=== PATIENT | male | born 1980 | race Caucasian/White ===

== ENCOUNTER 2017-07-13 09:57 | Emergency (ER) | payer OTHER ==
[2017-07-13 10:14] VITALS: BP 128/73; PULSE 62; TEMP 98.3; BMI 23.0
--- NOTE | 2017-07-13 10:36 | PDOC ---
History of Present Illness - General Chief Complaint: RX Refill Stated Complaint: RX REFILL Time Seen by Provider: 07/13/17 10:21 Past History - Past Medical History Allergies/Adverse Reactions: Allergies Allergy/AdvReac Type Severity Reaction Status Date / Time No Known Allergies Allergy Verified 07/13/17 10:11 Home Medications: Ambulatory Orders CarBAMazepine [Carbatrol ER] 300 mg PO TID 03/22/12 Carbamazepine [Carbamazepine ER] 300 mg PO TID #90 cpmp.12hr 07/13/17 Levetiracetam [Keppra -] 500 mg PO BID 07/13/17 Levetiracetam [Keppra -] 500 mg PO BID #60 tablet 07/13/17 Suicide Attempt (Hx): No Seizures: Yes - Surgical History Neurologic Surgery: Yes (brain) - Immunization History Td Vaccination: No TDAP Vaccination: No Immunization Up to Date: No - Psycho/Social/Smoking Cessation Hx Anxiety: No Suicidal Ideation: No Smoking Status: No Smoking History: Never smoked Have you smoked in the past 12 months: No Number of Cigarettes Smoked Daily: 0 Information on smoking cessation initiated: No Hx Alcohol Use: No Drug/Substance Use Hx: No Substance Use Type: None *Physical Exam - Vital Signs Last Vital Signs Temp Pulse Resp BP Pulse Ox 98.3 F 62 18 128/73 100 07/13/17 10:11 07/13/17 10:11 07/13/17 10:11 07/13/17 10:11 07/13/17 10:11 - Physical Exam General Appearance: Yes: Nourished, Appropriately Dressed HEENT: positive: EOMI, ANKUR Musculoskeletal: positive: Normal Inspection Extremity: positive: Normal Capillary Refill, Normal Inspection, Normal Range of Motion Neurologic: positive: senior scrum master II-XII NML intact, Fully Oriented, Alert, Normal Mood/ Affect, Normal Response, Motor Strength 5/5 Medical Decision Making - Medical Decision Making 07/13/17 10:51 cc: needs refil for seizure meds, moved from [place] and only has one week left of his meds. pt is establishing residence here, has [facility] medicaid pt has not missed any meds, has bottles with him with meds for one week left pt has no complaints I have verified the prescriptions are the patients and will prescribe for one month pt will follow here in [place] at the clinic *DC/Admit/Observation/Transfer Diagnosis at time of Disposition: Encounter for medication refill - Discharge Dispostion Disposition: HOME Condition at time of disposition: Fair - Prescriptions Prescriptions: Carbamazepine [Carbamazepine ER] 300 mg PO TID #90 cpmp.12hr Levetiracetam [Keppra -] 500 mg PO BID #60 tablet - Referrals Referrals: Lizett Castaneda [Primary Care Provider] - Dwaine Oshea MD [Staff Physician] - - Patient Instructions Additional Instructions: please follow with a primary care doctor or neurologist for further medication management
== END 2017-07-13 10:44 | disposition home or self-care (01) ==
LOC: JERFT 09:57
DX: G40.802 Other epilepsy, not intractable, without status epilepticus (principal)
CPT/HCPCS: 99281-25

== ENCOUNTER 2017-11-16 04:27 | Emergency (ER) | payer OTHER ==
[2017-11-16 04:41] VITALS: TEMP 97.8
[2017-11-16 04:45] VITALS: BP 130/88; PULSE 76; BMI 23.0
[2017-11-16] MEDS ORDERED: BUPIVACAINE HCL/PF 0.5% (5MG/ML) 10 ML VIAL IJ ONE (05:16)
[2017-11-16] MEDS ORDERED: LIDOCAINE HCL 1%, 10 MG/ML (50 mL VIAL) SQ ONE (05:16)
--- NOTE | 2017-11-16 05:19 | PDOC ---
History of Present Illness - General Chief Complaint: Toothache Stated Complaint: TOOTHACHE Time Seen by Provider: 11/16/17 04:47 - History of Present Illness Initial Comments: 11/16/17 05:18 CHIEF COMPLAINT: tooth pain HISTORY OF PRESENT ILLNESS: 37 yo M with hx of epilepsy presents to ED with tooth pain. Patient states he has an appointment with his dentist at 9 am but "I couldn't take the pain." No recent travel or sick contacts. PAST MEDICAL HISTORY: Denies past medical history FAMILY HISTORY: Denies SOCIAL HISTORY: Denies tobacco, alcohol, illicit drug use. SURGICAL HISTORY: Denies ALLERGIES: No known drug allergies REVIEW OF SYSTEMS General/Constitutional: Denies fever or chills. HEENT: Severe tooth pain. Denies change in vision. Denies ear pain or discharge. Denies sore throat. Gastrointestinal: Denies nausea, vomiting, diarrhea. Musculoskeletal: Denies joint or muscle swelling or pain. Denies neck or back pain. Neurologic: "I have a headache from this tooth pain." Denies vertigo, loss of consciousness, or loss of sensation. PHYSICAL EXAM General Appearance: Well-appearing, appropriately dressed. No apparent distress. HEENT: Dental caries and decay to 2nd R upper molar and 2nd R lower molar. EOMI , PERRLA, normal ENT inspection, normal voice, TMs normal, pharynx normal. No conjunctival pallor. No photophobia, scleral icterus. Respiratory/Chest: Lungs CTAB. Cardiovascular: RRR. S1, S2. Musculoskeletal/Extremities: Normal inspection. FROM of all extremities, normal capillary refill. No tenderness to extremities, pedal edema, swelling, erythema or deformity. Integumentary: Appropriate color, dry, warm. No cyanosis, erythema, jaundice or rash Neurologic: training program manager II-XII intact. Fully oriented, alert. Appropriate mood/affect. Motor strength 5/5. No appreciable EOM palsy, facial droop or sensory deficit. 11/16/17 05:43 Past History - Past Medical History Allergies/Adverse Reactions: Allergies Allergy/AdvReac Type Severity Reaction Status Date / Time No Known Allergies Allergy Verified 11/16/17 04:37 Home Medications: Ambulatory Orders CarBAMazepine [Carbatrol ER] 300 mg PO TID 03/22/12 Carbamazepine [Carbamazepine ER] 300 mg PO TID #90 cpmp.12hr 07/13/17 Levetiracetam [Keppra -] 500 mg PO BID 07/13/17 Levetiracetam [Keppra -] 500 mg PO BID #60 tablet 07/13/17 Diclofenac Sodium 50 mg PO BID #6 tablet. 11/16/17 COPD: No Seizures: Yes - Surgical History Neurologic Surgery: Yes (brain) - Immunization History Td Vaccination: No TDAP Vaccination: No Immunization Up to Date: No - Suicide/Smoking/Psychosocial Hx Smoking Status: No Smoking History: Never smoked Have you smoked in the past 12 months: No Number of Cigarettes Smoked Daily: 0 Information on smoking cessation initiated: No Hx Alcohol Use: No Drug/Substance Use Hx: No Substance Use Type: None *Physical Exam - Vital Signs Last Vital Signs Temp Pulse Resp BP Pulse Ox 97.8 F 76 20 130/88 99 11/16/17 04:37 11/16/17 04:37 11/16/17 04:37 11/16/17 04:37 11/16/17 04:37 Medical Decision Making - Medical Decision Making 11/16/17 05:45 37 yo M with hx of epilepsy presents to ED with tooth pain. Superior and inferior alveolar blocks performed; patient expressed immediate relief. Will rx Diclofenac for pain. Advised patient to take medication as prescribed and follow up with dentist as planned. Advised patient of signs and symptoms for return to ED. Patient verbalized understanding and agrees to plan. *DC/Admit/Observation/Transfer Diagnosis at time of Disposition: Pain, dental - Discharge Dispostion Disposition: HOME Condition at time of disposition: Stable Admit: No - Prescriptions Prescriptions: Diclofenac Sodium 50 mg PO BID #6 tablet. - Referrals Referrals: Bri Pitt [Primary Care Provider] - - Patient Instructions Printed Discharge Instructions: DI for Dental Pain Additional Instructions: Please take medications as prescribed. Follow up with your dentist on Friday morning as scheduled. If you develop any new or worsening pain, please return to the ER. - Post Discharge Activity
[2017-11-16] MEDS ORDERED: LIDOCAINE HCL 1%, 10 MG/ML (20ML VIAL) ONE (05:20)
[2017-11-16] MEDS ORDERED: BUPIVACAINE HCL/PF 0.5% (5MG/ML) 10 ML VIAL ONE (05:21)
== END 2017-11-16 05:54 | disposition home or self-care (01) ==
LOC: JER 04:27
PROC: 3E013BZ Introduction of Anesthetic Agent into Subcutaneous Tissue, Percutaneous Approach (ICD-10-PCS; principal; 2017-11-16)
DX: K02.9 Dental caries, unspecified (principal); G40.909 Epilepsy, unspecified, not intractable, without status epilepticus
CPT/HCPCS: 96372; 99281-25

== ENCOUNTER 2017-12-01 17:49 | Emergency (ER) | payer OTHER ==
[2017-12-01 18:21] VITALS: BP 100/64; PULSE 105; BMI 22.3
--- NOTE | 2017-12-01 18:23 | PDOC ---
Rapid Medical Evaluation Chief Complaint: Cold Symptoms Time Seen by Provider: 12/01/17 18:19 Medical Evaluation: Allergies Allergy/AdvReac Type Severity Reaction Status Date / Time No Known Allergies Allergy Verified 12/01/17 18:18 12/01/17 18:20 The patient presents with a chief complaint of: Flu like symptoms with fever since yesterday. C.o throat pain and dizziness. son diagnosed with Flu A on I have performed a brief in-person evaluation of this patient; Pertinent physical exam findings: ambulatory, in no respiratory distress. Erythema posterior pharynx. Fever 102 I have ordered the following: Ibuprofen, rapid strep, flu The patient will proceed to the ED for further evaluation.
[2017-12-01] MEDS ORDERED: DEXAMETHASONE SOD PHOSPHATE 10 MG/1 ML VIAL IM ONE (20:02)
[2017-12-01] MEDS ORDERED: IBUPROFEN 600 MG TABLET (FP) PO ONE ×2 (20:02→20:05)
[2017-12-01] MEDS ORDERED: AZITHROMYCIN 250 MG TABLET PO ONE (20:03)
[2017-12-01] MEDS ORDERED: ACETAMINOPHEN 500 MG TABLET (FP) PO ONE (20:03)
[2017-12-01] MEDS ORDERED: DEXAMETHASONE SOD PHOSPHATE 10 MG/1 ML VIAL ONE (20:05)
[2017-12-01] MEDS ORDERED: AZITHROMYCIN 250 MG TABLET ONE (20:05)
[2017-12-01] MEDS ORDERED: ACETAMINOPHEN 500 MG TABLET (FP) ONE (20:05)
--- NOTE | 2017-12-01 20:09 | PDOC ---
History of Present Illness - General Chief Complaint: Cold Symptoms Stated Complaint: COLD SYMPTOMS Time Seen by Provider: 12/01/17 18:19 History Source: Patient Exam Limitations: No Limitations - History of Present Illness Initial Comments: 12/01/17 20:04 37-year-old male with a history of seizures presents to the emergency department complaining of sore throat, fever/chills Tmax 103/oral he, productive cough and general malaise for 2 days without headache, dizziness, lightheadedness, facial pains, rhinorrhea, nasal congestion, a rakes, neck stiffness/pain, back pains, chest pain, shortness of breath, abdominal pains, urinary symptoms. Patient took ibuprofen 200 mg at 1500 hrs. today. Patient's 13 -year-old son was recently diagnosed with influenza A/yesterday. Timing/Duration: reports: other (x2d) Modifying Factors: worse with: rest Past History - Past Medical History Allergies/Adverse Reactions: Allergies Allergy/AdvReac Type Severity Reaction Status Date / Time No Known Allergies Allergy Verified 12/01/17 18:18 Home Medications: Ambulatory Orders Carbamazepine [Carbamazepine ER] 300 mg PO TID #90 cpmp.12hr 07/13/17 Levetiracetam [Keppra -] 500 mg PO BID #60 tablet 07/13/17 Diclofenac Sodium 50 mg PO BID #6 tablet. 11/16/17 COPD: No Seizures: Yes - Surgical History Neurologic Surgery: Yes (brain) - Immunization History Td Vaccination: No TDAP Vaccination: No Immunization Up to Date: No - Suicide/Smoking/Psychosocial Hx Smoking Status: No Smoking History: Never smoked Have you smoked in the past 12 months: No Number of Cigarettes Smoked Daily: 0 Information on smoking cessation initiated: No Hx Alcohol Use: No Drug/Substance Use Hx: No Substance Use Type: None Review of Systems - Review of Systems Able to Perform ROS?: Yes Comments:: 12/01/17 20:06 CONSTITUTIONAL: +fever, chills, generalized weakness Absent: diaphoresis, malaise, loss of appetite HEENT: +throat pain Absent: rhinorrhea, nasal congestion, throat swelling, difficulty swallowing, mouth swelling, ear pain, eye pain, visual Changes CARDIOVASCULAR: Absent: chest pain, loss of consciousness, palpitations, irregular heart rate, peripheral edema RESPIRATORY: + cough Absent:shortness of breath, dyspnea with exertion, orthopnea, wheezing, stridor , hemoptysis GASTROINTESTINAL: Absent: abdominal pain, abdominal distension, nausea, vomiting, diarrhea, constipation, melena, hematochezia GENITOURINARY: Absent: dysuria, frequency, urgency, hesitancy, hematuria, flank pain, genital pain MUSCULOSKELETAL: Absent: myalgia, arthralgia, joint swelling SKIN: Absent: rash, itching, pallor Is the patient limited Mohawk proficient: No *Physical Exam - Vital Signs Last Vital Signs Temp Pulse Resp BP Pulse Ox 102.7 F H 105 H 18 100/64 100 12/01/17 18:18 12/01/17 18:18 12/01/17 18:18 12/01/17 18:18 12/01/17 18:18 - Physical Exam Comments: 12/01/17 20:06 GENERAL: Well developed, well nourished. Awake and alert. No acute distress. HEENT: Normocephalic, atraumatic. PERRLA, EOMI. No conjunctival pallor. Sclera are non- icteric. Moist mucous membranes. Oropharynx is clear. NECK: Supple. Full ROM. No JVD. Carotid pulses 2+ and symmetric, without bruits. No thyromegaly. No lymphadenopathy. CARDIOVASCULAR: Regular rate and rhythm. No murmurs, rubs, or gallops. Distal pulses are 2+ and symmetric. PULMONARY: No evidence of respiratory distress. Lungs clear to auscultation bilaterally. No wheezing, rales or rhonchi. ABDOMINAL: Soft. Non-tender. Non-distended. No rebound or guarding. No organomegaly. Normoactive bowel sounds. MUSCULOSKELETAL Normal range of motion at all joints. No bony deformities or tenderness. No CVA tenderness. EXTREMITIES: No cyanosis. No clubbing. No edema. No calf tenderness. SKIN: Warm and dry. Normal capillary refill. No rashes. No jaundice. NEUROLOGICAL: Alert, awake, appropriate. Cranial nerves 2-12 intact. No deficits to light touch and temperature in face, upper extremities and lower extremities. No motor deficits in the in face, upper extremities and lower extremities. Normoreflexic in the upper and lower extremities. Normal speech. Toes are down- going bilaterally. Gait is normal without ataxia. *DC/Admit/Observation/Transfer Diagnosis at time of Disposition: Acute bronchitis Qualifiers: Bronchitis organism: unspecified organism Qualified Code(s): J20.9 - Acute bronchitis, unspecified Fever Qualifiers: Fever type: unspecified Qualified Code(s): R50.9 - Fever, unspecified Pharyngitis Qualifiers: Pharyngitis/tonsillitis etiology: unspecified etiology Qualified Code(s): J02.9 - Acute pharyngitis, unspecified - Discharge Dispostion Condition at time of disposition: Stable Admit: No - Referrals Referrals: Bri Pitt [Primary Care Provider] - - Patient Instructions Printed Discharge Instructions: DI for Acute Bronchitis, DI for Fever (Symptom ) -- Child Older Than Three Years Additional Instructions: As per our discussion: Tylenol alternating with Motrin every 6 hours as needed for fever If temperature is above 103.0/take Tylenol and Motrin Rest Increase fluids Follow with your PMD within 48 hours Return to the emergency department for severe/persistent or worsening symptoms - Post Discharge Activity
[2017-12-01 21:23] VITALS: TEMP 99.4
== END 2017-12-01 21:25 | disposition home or self-care (01) ==
LOC: JERFT 17:49
PROC: 3E0233Z Introduction of Anti-inflammatory into Muscle, Percutaneous Approach (ICD-10-PCS; principal; 2017-12-01)
DX: J20.9 Acute bronchitis, unspecified (principal); J02.9 Acute pharyngitis, unspecified
CPT/HCPCS: 87070; 87430; 87804; 96372; 99281-25; J1100

== ENCOUNTER 2021-11-12 21:01 | Emergency (ER) | payer OTHER ==
[2021-11-12 21:11] VITALS: BP 137/78; PULSE 78; TEMP 98; BMI 26.0
[2021-11-12] MEDS ORDERED: DIPHTH,PERTUSS(ACELL),TET 0.5 ML DISP.SYRIN IM ONE ×2 (22:36→22:43)
== END 2021-11-12 23:38 | disposition home or self-care (01) ==
LOC: JERFT 21:01
PROC: 3E0234Z Introduction of Serum, Toxoid and Vaccine into Muscle, Percutaneous Approach (ICD-10-PCS; principal; 2021-11-12)
DX: S61.209A Unspecified open wound of unspecified finger without damage to nail, initial encounter (principal); W27.4XXA Contact with kitchen utensil, initial encounter; Y93.G1 Activity, food preparation and clean up
CPT/HCPCS: 90471; 90715; 99284-25

== ENCOUNTER 2022-05-19 02:31 | Emergency (ER) | payer OTHER ==
[2022-05-19 03:06] VITALS: BP 104/87; PULSE 82; RESP 19; TEMP 97.4; BMI 21.6
== END 2022-05-19 04:32 | disposition home or self-care (01) ==
LOC: JER 02:31
DX: G40.89 Other seizures (principal)
CPT/HCPCS: 82962; 99283-25

== ENCOUNTER 2022-07-15 02:34 | Emergency (ER) | payer OTHER ==
[2022-07-15 02:46] VITALS: BP 116/68; PULSE 78; RESP 18; TEMP 98.1; BMI 23.0
[2022-07-15 04:19] LABS: ALBUMIN 3.8 g/dl (3.4-5.0); BLOOD UREA NITROGEN 14.7 mg/dL (7-18); CALCIUM 8.4 mg/dL (8.5-10.1)
[2022-07-15 04:22] LABS: CREATININE 1.3 mg/dL (0.55-1.3)
[2022-07-15 04:24] LABS: BILIRUBIN,TOTAL 0.2 mg/dL (0.2-1); TOT PROT 6.8 g/dl (6.4-8.2)
== END 2022-07-15 05:11 | disposition home or self-care (01) ==
LOC: JER 02:34
DX: G40.89 Other seizures (principal)
CPT/HCPCS: 36415; 80053; 82962; 93005; 93010; 99284-25